=== PATIENT | male | born 1975 | race Caucasian/White ===

== ENCOUNTER 2018-05-13 18:28 | Emergency (ER) | payer BC, SELFPAY | END 2018-05-13 19:10 | disposition home or self-care (01) | LOC: ERS 18:28 | DX: Z02.89 Encounter for other administrative examinations (principal); K74.60 Unspecified cirrhosis of liver; F17.220 Nicotine dependence, chewing tobacco, uncomplicated; Z79.899 Other long term (current) drug therapy; V89.2XXA Person injured in unspecified motor-vehicle accident, traffic, initial encounter | CPT/HCPCS: 99283 ==